=== PATIENT | female | born 1980 | race Hispanic/Latino ===

== ENCOUNTER 2016-12-28 19:52 | Emergency (ER) | payer BC, OTHER ==
--- NOTE | 2016-12-28 21:01 | OBHP ---
Datetime: 12/28/2016 20:50 IP Adm Impression: Term, intrauterine IP Admit Plan: Observation/Evaluation; Discharge home Admit Comment, IP Provider: Pt is a 36yo g1 edc 12/29 by lmp _ 12wk us prsents with c/o ctxs since th is morning, now q5min since 18:00. denies srom, bleeding or decreased fm. +mucosal type d/c. denies coitus in past several wks. states ob hx uncomplicated pmhx: Tb tx'd, cxr neg-10/21 pshx:denies nkda medic: pnv shx: denies etoh, drugs or tobacco use I: latent phase labor P:labor precautions kick counts. Pelvic Type - PN: Adequate Extremities - PN: Normal Abdomen - PN: Normal Lungs - PN: Normal Heart - PN: Normal Thyroid - PN: Normal HEENT - PN: Normal General - PN: Normal Presentation-Admit: Vertex FHR - Baseline A Provider: 120 Comments, ACOG Physical Exam: A+/ri/ hepBneg/gbs neg/hiv 10/21 neg tdao 10/21 post plac EGA AdmitDate IP: 39.6 Vital Signs Provider: Within Normal Limits IP Chief Complaint: Uterine contractions NICHD Variability Prov Fetus A: Moderate 6-25bpm NICHD Accel Fetus A IP Provider: 15X15 FHR Category Provider Fetus A: Category I NICHD Decel Fetus A IP Provider: None Dilatation, Provider: FT Effacement, Provider: 0 Station, Provider: -3 Genitourinary Exam: Normal
== END 2016-12-28 21:00 | disposition home or self-care (01) ==
LOC: H.EROB2 19:52 → H.NURSERY 20:19 → H.EROB 20:20 → H.EROB2 21:00
DX: O47.1 False labor at or after 37 completed weeks of gestation (principal); Z3A.39 39 weeks gestation of pregnancy

== ENCOUNTER 2016-12-29 00:18 | Inpatient (IN) | payer BC, OTHER ==
[2016-12-29 00:45] VITALS: BMI 23.6
[2016-12-29] MEDS: Lactated Ringer's 1,000 ML IV SCH ×4 (01:00→05:47)
[2016-12-29 01:26] LABS: BASO % 0.2 % (0.0-2.0); EOS % 0.2 % (0.0-4.0); HEMATOCRIT 41.5 % (34.0-47.0); LYMPH # 2.3 K/uL (1.0-4.3); LYMPH % 12.3 % (20.0-40.0); MEAN CELL VOLUME 85.3 fl (81.0-99.0); MEAN CORPUSCULAR HEMOGLOBIN 28.4 pg (27.0-31.0); MEAN CORPUSCULAR HGB CONC 33.3 g/dL (33.0-37.0); MONO # 0.9 K/uL (0.0-0.8); MONO % 4.8 % (0.0-10.0); NEUT # 15.4 K/uL (1.8-7.0); NEUT % 82.5 % (50.0-75.0); NRBC % 0.1 % (0.0-0.0); RED CELL DISTRIBUTION WIDTH 13.5 % (11.5-14.5); WHITE BLOOD COUNT 18.7 K/uL (4.8-10.8)
[2016-12-29] MEDS ORDERED: Bupivacaine HCl 0.25% PF (10 ml) Inj ONE (01:42)
[2016-12-29] MEDS ORDERED: Fentanyl/Bupivacaine HCl 250 ML EPI ONE (01:42)
[2016-12-29] MEDS ORDERED: Lidocaine 1% Inj (20ml) ONE (04:46)
[2016-12-29] MEDS ORDERED: Oxytocin 30 units/LR 500ML 30 U/500 ML BAG IV ONE (05:06)
--- NOTE | 2016-12-29 06:15 | OBHP ---
Datetime: 12/29/2016 06:10 Admit Comment, IP Provider: Late entry: Pt is a 36yo g1 edc 12/29 by lmp _ 12wk us prsents with c/o ctxs of increased intensity, duration a nd freq. denies srom, bleeding or decreased fm. pmhx: Tb tx'd, cxr neg-10/21 pshx:denies nkda medic: pnv shx: denies etoh, drugs or tobacco use I: Active labor P: Admit. Extremities - PN: Normal Abdomen - PN: Normal Neurologic - PN: Normal HEENT - PN: Normal General - PN: Normal EGA AdmitDate IP: 40.0 IP Chief Complaint: Uterine contractions Genitourinary Exam: Normal
--- NOTE | 2016-12-29 06:20 | OBADHP ---
Datetime: 12/29/2016 06:14 Admit Comment, IP Provider: t is a 36yo g1 edc 12/29 by lmp _ 12wk us prsents with c/o ctxs of increa sed intensity, duration and freq. denies srom, bleeding or decreased fm. pmhx: Tb tx'd, cxr neg-10/21 pshx:denies nkda medic: pnv shx: denies etoh, drugs or tobacco use I: Active labor P: Admit. Datetime: 12/29/2016 06:10 Extremities - PN: Normal Abdomen - PN: Normal Neurologic - PN: Normal HEENT - PN: Normal General - PN: Normal IP Chief Complaint: Uterine contractions Genitourinary Exam: Normal EGA AdmitDate IP: 40.0 Datetime: 12/28/2016 20:50 Pelvic Type - PN: Adequate Lungs - PN: Normal Heart - PN: Normal Thyroid - PN: Normal Presentation-Admit: Vertex FHR - Baseline A Provider: 120 Comments, ACOG Physical Exam: A+/ri/ hepBneg/gbs neg/hiv 10/21 neg tdao 10/21 post plac Vital Signs Provider: Within Normal Limits NICHD Variability Prov Fetus A: Moderate 6-25bpm NICHD Accel Fetus A IP Provider: 15X15 FHR Category Provider Fetus A: Category I NICHD Decel Fetus A IP Provider: None Dilatation, Provider: FT Effacement, Provider: 0 Station, Provider: -3 IP Adm Impression: Term, intrauterine IP Admit Plan: Observation/Evaluation; Discharge home
[2016-12-29] MEDS ORDERED: Benzocaine/Menthol SPRAY TOP PRN (13:14)
[2016-12-29] MEDS ORDERED: Oxycodone/Acetaminophen 5/325 mg Tab PO PRN ×2 (13:14)
--- NOTE | 2016-12-29 13:32 | OBDS ---
DELIVERY PERSONNEL Delivery Doctor: Torsten Flanagan MD Webbing Tacker: Roland Daigle [facility] Anesthesiologist: Tobias Rodriguez MD MATERNAL INFORMATION Delivery Anesthesia: Epidural Medications in Delivery: Pitocin 30 Estimated Blood Loss (ml): 250 Placenta Cultured: No Maternal Complications: None Provider Comments: Pt pushed to deliver a viable female in direct OA position through clear f luid at 12:52 pm over a small midline episiotomy. Apgars 9 and 9. Wt 7#10.6, 3475 gms. Mouth and na res bulb-suctioned. placed on mother's abdomen. Cord clamped and cut. Cord blood collected. Cord avulsed. Placenta delivered manually intact at 12:56pm. Second degree tear repaired w/ 2-0 ra pide and 3-0v. Bladder emptied of about 175 mL dark urine. Pt and baby tolerated the procedure well . EBL 250 mL LABOR SUMMARY EDC: 12/29/2016 00:00 No. Babies in Womb: 1 Attempted: No Labor Anesthesia: Epidural LABOR INFORMATION Reason for Induction: Not Applicable Onset of Labor: 12/29/2016 02:37 Complete Dilatation: 12/29/2016 08:05 Oxytocin: N/A Group B Beta Strep: Negative Antibiotics # of Doses: n/a Antibiotics Time of Last Dose: n/a Steroids Given: None Reason Steroids Not Administered: Not Applicable MEMBRANES Membranes Rupture Method: Spontaneous Rupture of Membranes: 12/28/2016 23:40 Length of Rupture (hrs): 13.20 Amniotic Fluid Color: Light Meconium (Annotations: as per pt LOF was " a little brown and bloody" ) Amniotic Fluid Amount: Moderate Amniotic Fluid Odor: Normal STAGES OF LABOR Stage 1 hrs: 5 Stage 1 min: 28 Stage 2 hrs: 4 Stage 2 min: 47 Stage 3 hrs: 0 Stage 3 min: 4 Total Time in Labor hrs: 10 Total Time in Labor min: 19 VAGINAL DELIVERY Episiotomy: Median Laceration Extension: N/A Laceration Type: Perineal Laceration Repair: No Initial Vag Sponge Count: 15 Final Vag Sponge Count: 15 Initial Vag Sharps Count: 3 Final Vag Sharps Count: 3 Sponge Count Correct: Yes Sharps Count Correct: Yes BABY A INFORMATION Delivery Date/Time: 12/29/2016 12:52 Method of Delivery: Vaginal Born in Route : No : N/A Forceps: N/A Vacuum Extraction: N/A Shoulder Dystocia : No SHOULDER DYSTOCIA BABY A Delivery Date/Time: 12/29/2016 12:52 PRESENTATION/POSITION BABY A Presentation: Breech Cephalic Presentation: Vertex Vertex Position: DOA PLACENTA INFORMATION BABY A Placenta Delivery Time : 12/29/2016 12:56 Placenta Method of Delivery: Manual Removal Placenta Status: Delivered SCORES BABY A Heart Rate 1 min: >100 bpm Resp Effort 1 min: Good Cry Reflex Irritability 1 min: Cough or Sneeze or Pulls Away Muscle Tone 1 min: Active Motion Color 1 min: Body [place], Extremities Blue SCORE 1 MIN: 9 Heart Rate 5 min: >100 bpm Resp Effort 5 min: Good Cry Reflex Irritability 5 min: Cough or Sneeze or Pulls Away Muscle Tone 5 min: Active Motion Color 5 min: Body [place], Extremities Blue SCORE 5 MIN: 9 INFORMATION BABY A Gestational Age at Delivery: 40.0 Gestational Status: Term Infant Outcome : Liveborn Condition : Stable Infant Sex: Female IDENTIFICATION/MEDS BABY A ID Band Number: [id number] WEIGHT/LENGTH BABY A Infant Birthweight (gms): 3475 Weight (lb): 7 Infant Weight (oz): 11 CORD INFORMATION BABY A No. Cord Vessels: 3 Nuchal Cord : N/A Cord Blood Taken: Yes Suction: Mouth; Nose ASSESSMENT BABY A Complications: None Physical Findings at Delivery: Caput Succedaneum Respirations: Appears Normal Bobbin Sorter/ALS Called : No Transferred To: Remains with Mother
--- NOTE | 2016-12-29 20:04 | OBDS ---
DELIVERY PERSONNEL Delivery Doctor: Torsten Flanagan MD Billing Rep: Roland Daigle [facility] Anesthesiologist: Tobias Rodriguez MD MATERNAL INFORMATION Delivery Anesthesia: Epidural Medications in Delivery: Pitocin 30 Estimated Blood Loss (ml): 250 Placenta Cultured: No Maternal Complications: None RN Comments: pt pushed from left to right and on her back, pt also pushed for ten minutes using the tug of war technique with Dr Flanagan. Girl with apgars of 9/9 right to maternal chest. Father o f baby cut the cord. Pt tolerated delivery of manual placenta removal and repair well. Pt denies an y increased discomfort or pain. Provider Comments: Pt pushed to deliver a viable female infant in direct OA position through clear f luid at 12:52 pm over a small midline episiotomy. Apgars 9 and 9. Wt 7#10.6, 3475 gms. Mouth and na res bulb-suctioned. placed on mother's abdomen. Cord clamped and cut. Cord blood collected. Cord avulsed. Placenta delivered manually intact with a 3vc at 12:56pm. Second degree tear repair ed w/ 2-0 rapide and 3-0v. Bladder emptied of about 175 mL dark urine. Pt and baby tolerated the pr ocedure well. EBL 250 mL LABOR SUMMARY EDC: 12/29/2016 00:00 No. Babies in Womb: 1 Attempted: No Labor Anesthesia: Epidural LABOR INFORMATION Reason for Induction: Not Applicable Onset of Labor: 12/29/2016 02:37 Complete Dilatation: 12/29/2016 08:05 Oxytocin: N/A Group B Beta Strep: Negative Antibiotics # of Doses: n/a Antibiotics Time of Last Dose: n/a Steroids Given: None Reason Steroids Not Administered: Not Applicable MEMBRANES Membranes Rupture Method: Spontaneous Membranes Rupture Method: Spontaneous Rupture of Membranes: 12/28/2016 23:40 Length of Rupture (hrs): 13.20 Amniotic Fluid Color: Light Meconium (Annotations: as per pt LOF was " a little brown and bloody" ) Amniotic Fluid Color: Clear Amniotic Fluid Amount: Moderate Amniotic Fluid Odor: Normal STAGES OF LABOR Stage 1 hrs: 5 Stage 1 min: 28 Stage 2 hrs: 4 Stage 2 min: 47 Stage 3 hrs: 0 Stage 3 min: 4 Total Time in Labor hrs: 10 Total Time in Labor min: 19 VAGINAL DELIVERY Episiotomy: Median Laceration Extension: N/A Laceration Type: Perineal Laceration Repair: No Initial Vag Sponge Count: 15 Final Vag Sponge Count: 15 Initial Vag Sharps Count: 3 Final Vag Sharps Count: 3 Sponge Count Correct: Yes Sharps Count Correct: Yes Count Comment: all counts done with MD and correct BABY A INFORMATION Infant Delivery Date/Time: 12/29/2016 12:52 Method of Delivery: Vaginal Method of Delivery: Vaginal Born in Route : No : N/A Forceps: N/A Vacuum Extraction: N/A Shoulder Dystocia : No SHOULDER DYSTOCIA BABY A Infant Delivery Date/Time: 12/29/2016 12:52 PRESENTATION/POSITION BABY A Presentation: Breech Cephalic Presentation: Vertex Vertex Position: DOA PLACENTA INFORMATION BABY A Placenta Delivery Time : 12/29/2016 12:56 Placenta Method of Delivery: Manual Removal Placenta Method of Delivery: Manual Removal Placenta Status: Delivered SCORES BABY A Heart Rate 1 min: >100 bpm Resp Effort 1 min: Good Cry Reflex Irritability 1 min: Cough or Sneeze or Pulls Away Muscle Tone 1 min: Active Motion Color 1 min: Body [place], Extremities Blue SCORE 1 MIN: 9 Heart Rate 5 min: >100 bpm Resp Effort 5 min: Good Cry Reflex Irritability 5 min: Cough or Sneeze or Pulls Away Muscle Tone 5 min: Active Motion Color 5 min: Body [place], Extremities Blue SCORE 5 MIN: 9 INFORMATION BABY A Gestational Age at Delivery: 40.0 Gestational Status: Term Outcome : Liveborn Condition : Stable Sex: Female Infant Sex: Female IDENTIFICATION/MEDS BABY A ID Band Number: [id number] ID Band Location: Right Leg; Left Leg Sensor Applied: Yes Sensor Location : Right Leg WEIGHT/LENGTH BABY A Infant Birthweight (gms): 3475 Infant Weight (lb): 7 Infant Weight (oz): 11 CORD INFORMATION BABY A No. Cord Vessels: 3 Nuchal Cord : N/A Cord Blood Taken: Yes Infant Suction: Mouth; Nose ASSESSMENT BABY A Complications: None Physical Findings at Delivery: Caput Succedaneum Respirations: Appears Normal [employer] Observer Helper/ALS Called : No Transferred To: Remains with Mother
[2016-12-30 07:03] LABS: BASO % 0.1 % (0.0-2.0); EOS # 0.1 K/uL (0.0-0.7); EOS % 0.3 % (0.0-4.0); HEMATOCRIT 36.2 % (34.0-47.0); LYMPH # 3.5 K/uL (1.0-4.3); LYMPH % 9.9 % (20.0-40.0); MEAN CELL VOLUME 86.4 fl (81.0-99.0); MEAN CORPUSCULAR HEMOGLOBIN 28.6 pg (27.0-31.0); MEAN PLATELET VOLUME 8.9 fl (7.2-11.7); MONO # 2.1 K/uL (0.0-0.8); NEUT # 29.5 K/uL (1.8-7.0); NEUT % 83.7 % (50.0-75.0); PLATELET COUNT 212 K/uL (130-400); RED CELL DISTRIBUTION WIDTH 13.2 % (11.5-14.5); WHITE BLOOD COUNT 35.2 K/uL (4.8-10.8)
[2016-12-30 10:43] LABS: NEUTROPHIL 80 % (42-75); TOTAL CELLS COUNTED 100
--- NOTE | 2016-12-30 12:23 | OBPPN ---
Datetime: 12/30/2016 12:20 PP Pain Prov: Within normal limits PP Nausea Prov: Denies PP Flatus Prov: Yes PP Breasts Prov: Normal PP Heart Prov: Normal PP Lungs Prov: Normal PP Abdomen/Uterus Prov: Normal PP Lochia Prov: Normal PP Vulva/Perineum Prov: Normal PP CVA Tenderness Prov: Normal PP Extremities Prov: Normal PP Comments Phys Exam Prov: Fundus firm under umbilicus PP Impression Prov: Normal progression PP Plan Prov: Continue present management PP Progress Note Prov: Patient denies CP, no SOB, no N/v, toleraing Po diet, ambulating/voiding well , mild lochia, abdominal pain tolerable with meds, A/P PPD #1 1. Reg diet 2. Percocet/Motrin prn pain 3. Encourage ambulation/voiding IP PP Procedures: None Vital Signs Provider PP: Reviewed; Within Normal Limits
--- NOTE | 2016-12-31 09:22 | OBPPN ---
Datetime: 12/31/2016 09:21 PP Pain Prov: Within normal limits PP Nausea Prov: Denies PP Flatus Prov: Yes PP BM Prov: Yes PP Breasts Prov: Normal PP Heart Prov: Normal PP Lungs Prov: Normal PP Abdomen/Uterus Prov: Normal PP Lochia Prov: Normal PP Vulva/Perineum Prov: Normal PP CVA Tenderness Prov: Normal PP Extremities Prov: Normal PP Progress Prov: Normal PP Impression Prov: Normal progression PP Plan Prov: Discharge PP Progress Note Prov: H/H 12 A: S/P day 2 PLAN: discharge home follow up 6w Vital Signs Provider PP: Reviewed; Within Normal Limits
--- NOTE | 2016-12-31 09:25 | OBDCSUM ---
Datetime: 12/31/2016 09:22 Discharged to, Provider: Home Follow up at, Provider: Thomas Disch Instr Activity: Normal activity Disch Instr Diet: Regular Discharge Instructions, Provider: Routine instructions given Discharge Diagnosis, Provider: Term Delivered Follow up in weeks, Provider: 6w Disch Referrals: None Contraception discussed, Prov: Yes Disch Activity Restrictions: No sexual activity; Nothing in vagina - [place], tampons, douche
[2016-12-31 18:25] VITALS: BP 100/65; PULSE 72; RESP 18; TEMP 97.9; O2SAT 98
== END 2016-12-31 14:15 | disposition home or self-care (01) | DRG 775 ==
LOC: H.EROB2 00:18 → H.L&D 00:45 → H.OB/GYN 16:02
PROVIDERS: ADMIT Obstetrics & Gynecology; ATTEND Obstetrics & Gynecology
PROC: 0W8NXZZ Division of Female Perineum, External Approach (ICD-10-PCS; principal; 2016-12-29)
PROC: 10E0XZZ Delivery of Products of Conception, External Approach (ICD-10-PCS; 2016-12-29)
PROC: 0KQM0ZZ Repair Perineum Muscle, Open Approach (ICD-10-PCS; 2016-12-29)
PROC: 4A1HXCZ Monitoring of Products of Conception, Cardiac Rate, External Approach (ICD-10-PCS; 2016-12-29)
DX: O77.0 Labor and delivery complicated by meconium in amniotic fluid (principal); O70.1 Second degree perineal laceration during delivery; Z37.0 Single live birth; Z3A.40 40 weeks gestation of pregnancy